=== PATIENT | male | born 1960 | race Caucasian/White ===

== ENCOUNTER 2022-09-20 13:19 | Outpatient (CLI) | payer OTHER, SELFPAY | END 2022-09-20 13:20 | disposition home or self-care (01) | PROVIDERS: PCP Family Medicine; Visit Provider Family Medicine | DX: Z00.00 Encounter for general adult medical examination without abnormal findings (principal); E78.00 Pure hypercholesterolemia, unspecified; R68.82 Decreased libido; R79.89 Other specified abnormal findings of blood chemistry; Z12.5 Encounter for screening for malignant neoplasm of prostate | CPT/HCPCS: 80053; 80061; 84153; 84270; 84402; 84403 ==

== ENCOUNTER 2023-08-19 11:01 | Outpatient (CLI) | payer OTHER, SELFPAY | END 2023-08-19 11:02 | disposition home or self-care (01) | LOC: NFLDREF 09-03 19:09 | PROVIDERS: PCP Family Medicine; Referring Provider Family Medicine; Visit Provider Family Medicine | DX: I10 Essential (primary) hypertension (principal); R53.83 Other fatigue; R79.89 Other specified abnormal findings of blood chemistry; E78.00 Pure hypercholesterolemia, unspecified; Z12.5 Encounter for screening for malignant neoplasm of prostate | CPT/HCPCS: 80053; 80061; 84270; 84402; 84403; 84443; G0103 ==

== ENCOUNTER 2023-08-27 13:37 | Outpatient (CLI) | payer OTHER, SELFPAY ==
[2023-08-27] MEDS: PERFLUTREN LIPID MICROSPHERES 2 ML VIAL IV (14:47)
[2023-08-27 14:59] VITALS: BP 138/80; PULSE 92; RESP 18
--- NOTE | 2023-08-27 15:10 | W.PM.STED ---
Stress Test Note Date Date of test: 08/27/23 Providers Primary care provider: Meño Lynn Stress test physician: Garth Schmid Stress Test Note Stress test ordered: Stress Echo Indication for test: Palpitations, chest pain Stress test medicine: Terri Results discussion: Patient is a very nice 62-year-old gentleman who presents for the above test after discussion the risks benefits and side effects and review of the cardiac stress test medical history form he would like to proceed. Pretest EKG shows normal sinus rhythm with a ventricular rate of 79 and a blood pressure 150/84. No acute ST wave changes are noted. Following standard Koby protocol, with the addition of definity patient is exercised for a total time of 10 minutes, achieved about milk equivalent of 11.5 Mets, with a maximum heart rate of 161, which is 121% of his maximum. During this test there is no appreciable ST wave changes suggestive of ischemia, he had no subjective symptoms of chest pain shortness of breath or any other anginal equivalent. He recovered normally in the recovery period, and was asymptomatic. Impression: Negative electrographic portion of stress echo, Follow up suggested: Await echo images, these will be read by Cardiology, clinical correlation with these will be needed, patient left this testing facility in excellent condition.
== END 2023-08-27 15:00 | disposition home or self-care (01) ==
PROVIDERS: PCP Family Medicine; Visit Provider Family Medicine
DX: R00.2 Palpitations (principal); R07.89 Other chest pain
CPT/HCPCS: 93016; 93325; 93351; Q9957

== ENCOUNTER 2024-01-27 09:10 | Outpatient (CLI) | payer BC, SELFPAY | END 2024-01-27 09:11 | disposition home or self-care (01) | LOC: NFLDREF 01-30 06:24 | PROVIDERS: PCP Family Medicine; Referring Provider Family Medicine; Visit Provider Family Medicine | DX: R53.83 Other fatigue (principal); R79.89 Other specified abnormal findings of blood chemistry; E78.00 Pure hypercholesterolemia, unspecified; M10.9 Gout, unspecified | CPT/HCPCS: 80053; 80061; 84270; 84402; 84403; 84550 ==

== ENCOUNTER 2024-04-20 08:28 | Outpatient (CLI) | payer BC, SELFPAY | END 2024-04-20 08:29 | disposition home or self-care (01) | LOC: NFLDREF 04-22 00:51 | PROVIDERS: PCP Family Medicine; Referring Provider Family Medicine; Visit Provider Family Medicine | DX: R79.89 Other specified abnormal findings of blood chemistry (principal); E78.00 Pure hypercholesterolemia, unspecified; R53.83 Other fatigue | CPT/HCPCS: 80053; 80061; 84270; 84402; 84403 ==

== ENCOUNTER 2024-05-28 13:36 | Outpatient (CLI) | payer BC, SELFPAY | END 2024-05-28 13:37 | disposition home or self-care (01) | LOC: LKVREF 13:38 | PROVIDERS: PCP Family Medicine; Visit Provider Emergency Medicine | DX: R10.32 Left lower quadrant pain (principal); R82.90 Unspecified abnormal findings in urine | CPT/HCPCS: 86140; 87086 ==

== ENCOUNTER 2024-07-29 08:57 | Outpatient (CLI) | payer BC, SELFPAY | END 2024-07-29 08:58 | disposition home or self-care (01) | LOC: NFLDREF 08-05 00:35 | PROVIDERS: PCP Family Medicine; Referring Provider Family Medicine; Visit Provider Family Medicine | DX: E29.1 Testicular hypofunction (principal) | CPT/HCPCS: 84270; 84402; 84403 ==

== ENCOUNTER 2024-08-17 09:17 | Outpatient (CLI) | payer BC, SELFPAY | END 2024-08-17 09:18 | disposition home or self-care (01) | LOC: NFLDREF 08-19 02:38 | PROVIDERS: PCP Family Medicine; Referring Provider Family Medicine; Visit Provider Family Medicine | DX: E29.1 Testicular hypofunction (principal); R53.83 Other fatigue | CPT/HCPCS: 84270; 84402; 84403 ==

== ENCOUNTER 2024-12-30 08:34 | Outpatient (CLI) | payer BC, SELFPAY | END 2024-12-30 08:35 | disposition home or self-care (01) | LOC: NFLDREF 01-01 10:27 | PROVIDERS: PCP Family Medicine; Referring Provider Family Medicine; Visit Provider Family Medicine | DX: D64.9 Anemia, unspecified (principal); R79.89 Other specified abnormal findings of blood chemistry; R53.83 Other fatigue; Z12.5 Encounter for screening for malignant neoplasm of prostate | CPT/HCPCS: 80076; 84270; 84402; 84403; G0103 ==

== ENCOUNTER 2025-02-02 08:16 | Outpatient (CLI) | payer BC, SELFPAY | END 2025-02-02 08:17 | disposition home or self-care (01) | LOC: NFLDREF 09:47 | PROVIDERS: PCP Family Medicine; Visit Provider Family Medicine | DX: E78.00 Pure hypercholesterolemia, unspecified (principal); R79.89 Other specified abnormal findings of blood chemistry; R53.83 Other fatigue | CPT/HCPCS: 80061; 80076; 84270; 84402; 84403 ==